=== PATIENT | male | born 1960 | race Caucasian/White ===

== ENCOUNTER 2016-08-31 04:30 | Inpatient (IN) | payer BC ==
[~2016-08-31] VITALS: Ht 185.4 cm; Wt 97.9 kg
--- NOTE | ~2016-08-31 | OR ---
PATIENT'S NAME: ION TRACY [facility] AGE: 56 Y [address] ROOM: [place] [address] LOCATION: GPCU ADMIT DATE: 08/31/2016 OR/Procedure Report DISCHARGE DATE: FAMILY PHYSICIAN: PHYSICIAN, NO ATTENDING PHYSICIAN: YUMIKO SANCHEZ SURGEON: Polo Luong MD SEWER CLEANER: None. DATE OF PROCEDURE: 08/31/2016 PREOPERATIVE DIAGNOSES: Acute cholecystitis and cholelithiasis. POSTOPERATIVE DIAGNOSES: 1. Acute cholecystitis with early gangrenous changes, gallbladder hydrops. 2. Normal common bile duct. PROCEDURE: Laparoscopic cholecystectomy with intraoperative cholangiogram. ANESTHESIA: General with 19 mL of 0.5% Marcaine local. ESTIMATED BLOOD LOSS: 50 mL. SPECIMEN: Gallbladder with stone. INDICATIONS: The patient is a 56-year-old gentleman, who presented with abrupt onset of epigastric abdominal pain, which is unremitting. Cardiac status found to be normal. He had an elevated white count [address]. Normal liver function tests. Ultrasound showed stones. After clinical evaluation it felt to have represent clinical cholecystitis. I recommended he agreed to laparoscopic cholecystectomy. DESCRIPTION OF PROCEDURE: After informed consent, the patient was taken to the operating room. After general endotracheal anesthesia, the patient's abdomen was prepped and draped into a sterile field. Time-out performed. We confirmed the patient and planned procedure and administration of preop antibiotics. We then injected local anesthetic prior to each incision. The first one made below the umbilicus, carried down to identify the anterior fascia through which a Veress needle inserted. Pneumoperitoneum was created. Under direct vision, the remaining trocars were placed. The gallbladder was visualized on the initial view because the omentum was adherent to it. We stripped down the top half of the omentum and exposed a distended hydropic gallbladder with evidence of early gangrenous changes of the wall. We had to puncture the fundus of the gallbladder in order to decompress it enough to grab it. We then carefully took down adhesions, which were very stuck to the gallbladder wall indicating the longer association with symptoms in just 12 hours. We carefully stripped down and we encountered a large stone in the PATIENT'S NAME: ION TRACY [facility] AGE: 56 Y [address] ROOM: [place] [id number] [facility] ADMIT DATE: 08/31/2016 OR/Procedure Report DISCHARGE DATE: FAMILY PHYSICIAN: PHYSICIAN, NO ATTENDING PHYSICIAN: YUMIKO SANCHEZ infundibulum. Beyond this, we were able to identify the infundibulum where the transition to the cystic duct. We retracted and we tacked down the lateral peritoneal reflection of the gallbladder to the liver to help increase our critical view of safety. We then did a dissection in the very edematous tissue and gapped around the presumed small cystic duct in order to confirm our anatomy. We elected to do a cholangiogram. We placed a clip on the gallbladder side. Did a cystotomy. Placed our cholangiogram catheter. We used 20 mL of Isovue-30 and we had the correct identification of the cystic duct and cannulation. We noted the common bile duct to be small caliber of the right and left were noted and the and free flow of contrast into the duodenal bulb. We then took out the cholangiogram catheter, clipped the duct x3 distally and divided. We clamped the lymphatic and divided. We then identified the cystic artery. Placed three clamp with four clips and divided with one clip remaining specimen side. The gallbladder was removed from liver bed with some difficulty due to inflammatory changes. Once removed, it was placed into an EndoCatch bag. We had to break up into the stone. The large stone into pieces slowly extracted through the abdominal wall at the umbilical fascial defect. We then returned to the right upper quadrant irrigated and inspected the liver bed. Hemostasis was noted. The trocars were then removed. Pneumoperitoneum released. The midline fascia defects closed with 0 Vicryl. The skin closed with subcuticular 4-0 Vicryl. Steri-Strips and sterile dressings applied. The patient tolerated procedure well and transferred to recovery room in stable condition. MD JR RIOJAS/shane /[id number] d: 08/31/16 1853 t: 09/11/16 1141, OPERATIVE SUMMARY
--- NOTE | ~2016-08-31 | DS ---
PATIENT'S NAME: ION TRACY [facility] AGE: 56 Y [address] ROOM: [id number] [place], [place] [address] LOCATION: GPCU ADMIT DATE: 08/31/2016 Discharge Summary DISCHARGE DATE: 09/02/2016 FAMILY PHYSICIAN: PHYSICIAN, NO ATTENDING PHYSICIAN: Ciro Chen FINAL DIAGNOSES: 1. Gangrenous cholecystitis. 2. Epigastric pain. PROCEDURES: Had a laparoscopic cholecystectomy with Dr. Luong on August 31. For details of admission, please see the history and physical dictated by , but the patient did present was epigastric pain. He was admitted to the floor for evaluation. LABORATORY DATA: On admission, sodium 131, potassium 3.9, chloride 108, CO2 19, BUN 11, and creatinine 1.1. Liver enzymes were normal. His cardiac enzymes were normal. Lipase was 152. White blood cell count on presentation was 18.2, on the second hospital day it was 20.5, on discharge day it was 12.5; hemoglobin on admission was 16.1, was 14.9 at discharge; and platelet count on admission 244, remained stable. Procalcitonin on admission was 0.06. Urinalysis, no evidence of infection. Blood cultures were negative. RADIOLOGIC DATA: Ultrasound of the right upper quadrant on admission showed gallbladder sludge and stones. HOSPITAL COURSE: The patient was admitted to the floor and an evaluation was done to evaluate his pain. There was concern with the pain whether it could be from esophagus or pancreatitis. His lipase was normal on admission. He was placed on Flagyl and Levaquin IV. An ultrasound was obtained. GI did see the patient. The ultrasound did show that he had evidence of stones in his gallbladder. Dr. Luong was asked to see him and felt that he had acute cholecystitis and will be benefitted from a laparoscopic cholecystectomy. Please see his operative note for full details. It did note that he had acute hydropic cholecystitis with early gangrene. He was continued on the IV antibiotics. By the second hospital day, his white blood cell count was elevated. The patient was actually doing okay, but the decision was made to continue the antibiotics and monitor him for another 24 hours. On the day of discharge, his hemoglobin was down to 12.5, he was eating without any difficulty and was not experiencing any pain. It was felt that he was stable for discharge and discharged to home. DISCHARGE INSTRUCTIONS: No lifting greater than 20 pounds for 3 weeks. He could remove the dressing on September 04. He is follow up with Dr. Luong in 7- PATIENT'S NAME: ION TRACY [facility] AGE: 56 Y [address] ROOM: [place] [address] LOCATION: GPCU ADMIT DATE: 08/31/2016 Discharge Summary DISCHARGE DATE: 09/02/2016 FAMILY PHYSICIAN: ZIA CUTLER ATTENDING PHYSICIAN: Ciro Chen 10 days. He was given a post laparoscopic cholecystectomy instructions sheet. MEDICATIONS: [place] 5/325 1-2 every 4 hours as needed for pain, he was sent with a script for 20. OVERALL PROGNOSIS: At discharge was good. MAURILIO BROWNE MD LAW/modl /[id number] CC: Polo Luong MD d: 09/02/162009 t: 09/05/161920, DISCHARGE SUMMARY
--- NOTE | ~2016-08-31 | CON ---
PATIENT'S NAME: ROSSANA [facility] AGE: 56 Y [address] ROOM: [facility] [place] [place], [place] [address] LOCATION: GPCU ADMIT DATE: 08/31/2016 Consultation DISCHARGE DATE: 09/02/2016 FAMILY PHYSICIAN: PHYSICIAN, NO ATTENDING PHYSICIAN: YUMIKO SANCHEZ Added DOS per provider 10/09/2016 AO DATE OF CONSULTATION: 08/31/2016 REFERRING PHYSICIAN: CHACE HOLLINS MD REASON FOR CONSULT: Abdominal pain. HISTORY OF PRESENT ILLNESS: Mr. Tracy is a very pleasant 56-year-old male, who was admitted early this morning to emergency room in view of history of acute onset of upper abdominal pain. The patient states he went to bed fine last night, however, woke up this morning around 1:30 with acute onset of epigastric pain without radiation to the back or shoulders in association with nausea and vomiting and presented to the ER whereby initial cardiac workup was negative. His blood work did reveal high white cell count of 18,000 with abdominal ultrasound revealing cholelithiasis. Official report is pending. Liver function tests were normal. His CBC was otherwise normal except for high white cell count, hemoglobin of 16, platelets 244,000. INR 0.9. CPK-MB 0.5. Chest x-ray was normal. The patient does not report any previous similar episodes and is otherwise healthy with no previous pertinent history. PAST MEDICAL HISTORY: Negative. He has never undergone any endoscopic evaluation. PAST SURGICAL HISTORY: None. MEDICATIONS: At home, none. Presently covered with IV antibiotics as well as IV Protonix and pain medications. SOCIAL HISTORY: Previous 65-egfk-qrke smoking. Denies alcohol use. FAMILY HISTORY: None for GI cancer. REVIEW OF SYSTEMS: PATIENT'S NAME: ION TRACY [facility] AGE: 56 Y [address] ROOM: [facility] [place] [place], [place] [address] LOCATION: GPCU ADMIT DATE: 08/31/2016 Consultation DISCHARGE DATE: 09/02/2016 FAMILY PHYSICIAN: PHYSICIAN, ZIA ATTENDING PHYSICIAN: YUMIKO SANCHEZ The 10-point review of systems is otherwise negative. PHYSICAL EXAMINATION: GENERAL: Well-developed, well-nourished man in mild distress in view of abdominal pain. VITAL SIGNS: Otherwise stable. Afebrile. HEENT: Atraumatic, normocephalic. Pupils round and reactive. Nonicteric sclerae. NECK: Supple. No palpable nodes. No thyromegaly. CHEST: Clear to auscultation. HEART: S1, S2 normal. ABDOMEN: Soft and mildly distended with moderately severe tenderness in the epigastric and right upper quadrant with localized guarding. Bowel sounds are decreased. RECTAL: Not done. EXTREMITIES: No edema. Pulses well palpable. NEUROLOGIC: Awake, alert, appropriate. No focal deficits. LABORATORY DATA: As noted above. Initial lipase was reported as normal. ASSESSMENT AND PLAN: A 56-year-old male with acute onset of abdominal pain, high white cell count, and positive Trujillo sign in association with gallstones is highly suggestive of underlying acute cholecystitis. The possibility of pancreatitis is not completely ruled out. We will obtain followup CBC, amylase, and lipase values. He is covered with IV antibiotics. We will have General Surgery on board in regard to this possibility. Further recommendations pending his clinical course. Thank you for this consult. CHACE HOLLINS MD AM/shane /[id number] Added DOS per provider 10/09/2016 AO d: 08/31/16 1132 t: 10/09/16 1405, CONSULTATION REPORT
--- NOTE | ~2016-08-31 | CON ---
PATIENT'S NAME: ION TRACY [facility] AGE: 56 Y [address] ROOM: [place] [address] LOCATION: GPCU ADMIT DATE: 08/31/2016 Consultation DISCHARGE DATE: FAMILY PHYSICIAN: , ZIA ATTENDING PHYSICIAN: YUMIKO SANCHEZ REFERRING PHYSICIAN: CHACE HOLLINS MD REASON FOR CONSULT: Abdominal pain. HISTORY OF PRESENT ILLNESS: Mr. Tracy is a very pleasant 56-year-old male, who was admitted early this morning to emergency room in view of history of acute onset of upper abdominal pain. The patient states he went to bed fine last night, however, woke up this morning around 1:30 with acute onset of epigastric pain without radiation to the back or shoulders in association with nausea and vomiting and presented to the ER whereby initial cardiac workup was negative. His blood work did reveal high white cell count of 18,000 with abdominal ultrasound revealing cholelithiasis. Official report is pending. Liver function tests were normal. His CBC was otherwise normal except for high white cell count, hemoglobin of 16, platelets 244,000. INR 0.9. CPK-MB 0.5. Chest x-ray was normal. The patient does not report any previous similar episodes and is otherwise healthy with no previous pertinent history. PAST MEDICAL HISTORY: Negative. He has never undergone any endoscopic evaluation. PAST SURGICAL HISTORY: None. MEDICATIONS: At home, none. Presently covered with IV antibiotics as well as IV Protonix and pain medications. SOCIAL HISTORY: Previous 24-vwsy-they smoking. Denies alcohol use. FAMILY HISTORY: None for GI cancer. REVIEW OF SYSTEMS: The 10-point review of systems is otherwise negative. PHYSICAL EXAMINATION: PATIENT'S NAME: ION TRACY [facility] AGE: 56 Y [address] ROOM: [place] [address] LOCATION: GPCU ADMIT DATE: 08/31/2016 Consultation DISCHARGE DATE: FAMILY PHYSICIAN: PHYSICIAN, ZIA ATTENDING PHYSICIAN: YUMIKO SANCHEZ GENERAL: Well-developed, well-nourished man in mild distress in view of abdominal pain. VITAL SIGNS: Otherwise stable. Afebrile. HEENT: Atraumatic, normocephalic. Pupils round and reactive. Nonicteric sclerae. NECK: Supple. No palpable nodes. No thyromegaly. CHEST: Clear to auscultation. HEART: S1, S2 normal. ABDOMEN: Soft and mildly distended with moderately severe tenderness in the epigastric and right upper quadrant with localized guarding. Bowel sounds are decreased. RECTAL: Not done. EXTREMITIES: No edema. Pulses well palpable. NEUROLOGIC: Awake, alert, appropriate. No focal deficits. LABORATORY DATA: As noted above. Initial lipase was reported as normal. ASSESSMENT AND PLAN: A 56-year-old male with acute onset of abdominal pain, high white cell count, and positive Trujillo sign in association with gallstones is highly suggestive of underlying acute cholecystitis. The possibility of pancreatitis is not completely ruled out. We will obtain followup CBC, amylase, and lipase values. He is covered with IV antibiotics. We will have General Surgery on board in regard to this possibility. Further recommendations pending his clinical course. Thank you for this consult. CHACE HOLLINS MD AM/shane /[id number] d: 08/31/16 1132 t: 09/02/16 1441, CONSULTATION REPORT
--- NOTE | ~2016-08-31 | HP ---
PATIENT'S NAME: ION TRACY [facility] AGE: 56 Y [address] ROOM: [id number] [place], [place] [address] LOCATION: GPCU ADMIT DATE: 08/31/2016 History & Physical DISCHARGE DATE: FAMILY PHYSICIAN: PHYSICIAN, ZIA ATTENDING PHYSICIAN: YUMIKO SANCHEZ DATE OF SERVICE: CHIEF COMPLAINT: Epigastric pain and nausea and vomiting. HISTORY OF PRESENT ILLNESS: This is a 56-year-old, male, who says that last night around 5:00 p.m., he had steak, hash browns, and a bowl of chillies and after that about an hour after, he started feeling this epigastric pain, associated with nausea, and he vomited twice of nonbloody content. But he states he vomited all the bowl of chilly that he ate earlier. He also at the same time felt a little bit diaphoretic but he denies any fever or chills. He rated the epigastric pain about 9/10 in intensity without radiation. Denies any dyspnea or cough. Overnight, the epigastric pain kept coming back and was getting worse. Therefore, the patient called ambulance and was brought here for evaluation. The patient denies ever having any known cardiac problem in the past. The patient denies any melena, hematemesis, hematuria, hemoptysis, coffee-grounds emesis, or hematochezia. REVIEW OF SYSTEMS: As mentioned in the history of present illness. All other systems were reviewed and were negative except those mentioned in the history of present illness. PAST MEDICAL HISTORY: No known past medical history. ALLERGIES: NO KNOWN DRUG ALLERGIES. HOME MEDICATIONS: None. SOCIAL HISTORY: The patient is an active cigarette smoker about 2 packs per day since he was 20 years old. The patient is a former social alcohol drinker. He denies any alcohol abuse, only for few years and he quit a few months ago already. The patient denies any alcohol withdrawal, seizure, or any alcohol use dependence in the past. The patient denies any illegal drug use. The patient works as a PATIENT'S NAME: ION TRACY [facility] AGE: 56 Y [address] ROOM: [id number] [place], [place] [address] LOCATION: GPCU ADMIT DATE: 08/31/2016 History & Physical DISCHARGE DATE: FAMILY PHYSICIAN: PHYSICIAN, NO ATTENDING PHYSICIAN: YUMIKO SANCHEZ company tanker truck driver. PAST SURGICAL HISTORY: None. FAMILY HISTORY: Father is healthy. Mother had some kind of heart problem but he does not know all the details. She is also diabetic and is alive. He has 2 brothers without any known cardiac history. He has 3 sisters also without any known cardiac history. PHYSICAL EXAMINATION: VITAL SIGNS: The patient's heart rate is 78, blood pressure 141/89, saturation 98% on 1 L nasal cannula, respirations 14, and temperature 98. GENERAL APPEARANCE: Alert and oriented x3, in no acute distress. HEENT: Pupils equally round and reactive to light. Extraocular muscles intact. Anicteric sclerae. Nasal turbinates are normal bilaterally. Moist oral mucosa. NECK: No JVD. CARDIOVASCULAR: Regular rate and rhythm. Normal S1, S2. No murmur. No rubs. No gallops. RESPIRATORY: Clear. Chest wall nontender to palpation. ABDOMEN: Tenderness to palpation in the epigastric area. No abdominal rigidity. Soft. Nondistended. No palpable mass. Bowel sounds are present. No ascites. No signs to suggest peritonitis. No rebound tenderness. Mild tenderness on deep palpation with deep inspiration in the right upper quadrant. Trujillo sign mildly positive at the moment. EXTREMITIES: No edema in upper or lower extremities. NEUROLOGICAL: Grossly nonfocal. SKIN: No ulcer, no rash, no cyanosis. MUSCULOSKELETAL: No joint pain. No muscle pain. Range of motion intact. LABORATORY DATA: Lactic acid 0.7. Troponin less than 0.04 out of first 2 sets. CPK 65, followed by 58. White blood cells 18.2, hemoglobin 16.1, hematocrit 47.2, platelets 244. Glucose 125, BUN 11, creatinine 1.1, sodium 139, potassium 3.9, chloride 108, CO2 19, calcium 8.6. Total protein 7.0, albumin 3.3, AST 13, ALT 24, alkaline phosphatase 80, total bilirubin 0.5, magnesium 2.0, anion gap of 15.9. GFR more than 60. INR 0.99 and PTT 28. Lipase 152, CK-MB less than 0.05 out of first 2 sets. Procalcitonin pending. Chest x-ray on admission, official reading is pending. Based on my review, unremarkable. Right upper quadrant abdominal ultrasound was performed in the emergency room. PATIENT'S NAME: ION TRACY [facility] AGE: 56 Y [address] ROOM: [id number] [place], [place] [address] LOCATION: GPCU ADMIT DATE: 08/31/2016 History & Physical DISCHARGE DATE: FAMILY PHYSICIAN: PHYSICIAN, NO ATTENDING PHYSICIAN: YUMIKO SANCHEZ Based on the verbal report given to me by the ER physician, it shows evidence of biliary sludge and gallstone and mild inflammation of the gallbladder wall. This is a verbal report. Please follow up on the official report in the morning. EKG on admission: sinus rhythm HR 73, no acute ischemic findings. RI 164, QRS 98 and QTC 405. EMERGENCY ROOM COURSE: In the emergency room, the patient received IV Zofran 4 mg x1, nitroglycerin sublingual 0.4 mg x2, morphine 2 mg IV x1, morphine 2 mg IV x1 again, Dilaudid 0.25 mg IV x1, GI cocktail, one bottle p.o. x1, and Protonix 40 mg p.o. x1. ASSESSMENT AND PLAN: 1. Regarding his epigastric pain, associated with nausea and vomiting: Differential here could include acute gastroenteritis from food poisoning, could also include Hernadez's esophagus, could also include perforated viscus but less likely given that there is no abdominal rigidity on examination, and chest x-ray did not show any free air, but I will get a KUB right now to make sure there is no free air at this time. The other differential could include acute cholecystitis but I will wait for the final report of the right upper quadrant ultrasound to be read by our Radiology this morning. In the meantime, to cover for the gastroenteritis or colitis or cholecystitis, I am going to cover him with IV Levaquin plus IV Flagyl. This is a coverage good for cholecystitis and also good for colitis or gastroenteritis of infectious origin. Further plan depends on clinical course. I also going to give him IV fluids for hydration. Keep him n.p.o. I will get a GI consult in case patient may benefit from upper endoscopy to see if he has any finding that could be fixed from the upper endoscopy. Lipase is normal. Therefore pancreatitis is less likely. There is no pain anywhere else on abdominal exam. If his pain worsens or persists, we will get a CT abdomen and pelvis for further evaluation. Further plan depends on clinical course. I will also get 2 sets of blood culture right now given that the patient is having leukocytosis on admission. Procalcitonin currently is pending. Further plan will depend on clinical course. 2. Regarding possibility of a cardiac cause of his pain, at this moment it is less likely, given that the epigastric pain is reproducible on touch. Therefore it is less likely from the cardiac cause. Troponin so far two sets are negative. EKG unremarkable. The patient does have cardiac risk factors including cigarette smoking and overweight. However, at the moment, the epigastric pain associated with nausea, vomiting, and negative EKG, negative cardiac enzyme, and no response of relief with nitroglycerin or morphine, is probably less likely from the cardiac origin. However, I will continue cardiac monitoring for now. 3. Regarding his deep vein thrombosis prophylaxis: I will give him compression devices, in case he will require any surgical intervention. Further plan depends on clinical course. If the patient would not PATIENT'S NAME: ION TRACY [facility] AGE: 56 Y [address] ROOM: [place] [address] [facility] AD[facility] DATE: 08/31/2016 History & Physical DISCHARGE DATE: FAMILY PHYSICIAN: PHYSICIAN, NO ATTENDING PHYSICIAN: YUMIKO SANCHEZ require surgical intervention, therefore, heparin or Lovenox subcutaneous will be given. 4. Code status: Full code. Time spent on the day of admission in care, 35 minutes, including chart review, interviewing the patient, examining the patient, addressing all the questions and concerns the patient had, and also went over the plan of care in detail with the patient and the patient's sister at the bedside. All questions were answered to their satisfaction. The patient and the patient's sister agree with the current plan and understand that further plan will depend on clinical course. Half of the total time spent was in examining and interviewing the patient and chart review, the other half was spent in counseling by answering patient and his sister's questions and concerns and going over plan of care with them. MD NADINE PENA/shane /[id number] D: [id number] T: [id number] HISTORY & PHYSICAL
--- NOTE | ~2016-08-31 | ER ---
PATIENT'S NAME: ION TRACY [facility] AGE: 56 Y [address] ROOM: [address] [address] LOCATION: GPCU ADMIT DATE: 08/31/2016 ER/Outpatient Report DISCHARGE DATE: FAMILY PHYSICIAN: PHYSICIAN, NO ATTENDING PHYSICIAN: YUMIKO SANCHEZ TIME SEEN: The patient is seen at 0440 hours. CHIEF COMPLAINT: This is a 56-year-old male. He was previously quite healthy. He is in with a complaint of epigastric pain, lower chest pain, nausea, and diaphoresis. HISTORY OF PRESENT ILLNESS: He reports that he ate a heavy dinner last night, although he felt well after eating, and he went to sleep. He was awakened at about midnight with severe subxiphoid pain associated with nausea and diaphoresis. He states he vomited twice. He continued to have the pain. The ambulance was summoned, and they gave him morphine and Zofran en route to the emergency department, and his pain resolved. PAST MEDICAL HISTORY: He has no chronic medical problems. REVIEW OF SYSTEMS: Otherwise, negative. SOCIAL HISTORY: He smokes greater than 2 packs per day for the past 30 years. He works as a trash truck driver. PHYSICAL EXAMINATION: GENERAL: Alert, cooperative male, appearing older than his stated age of 56, in no acute distress. SKIN: Warm and dry. Color is normal. HEAD, EARS, EYES, NOSE, AND THROAT: Normal. NECK: Supple. HEART: Regular rate and rhythm without murmur. LUNGS: Clear. Breath sounds are equal. ABDOMEN: Soft. He has minimal epigastric tenderness. No guarding or rebound tenderness. NEUROLOGIC: Normal. LABORATORY DATA: EKG revealed normal sinus rhythm with no acute ST or T-wave changes. CBC with PATIENT'S NAME: ION TRACY [facility] AGE: 56 Y [address] ROOM: [address] [place] [id number] LOCATION: GPCU ADMIT DATE: 08/31/2016 ER/Outpatient Report DISCHARGE DATE: FAMILY PHYSICIAN: PHYSICIAN, NO ATTENDING PHYSICIAN: YUMIKO SANCHEZ elevated white blood cell count of 18,000. Otherwise, unremarkable. Comprehensive metabolic profile revealed normal liver enzymes and was essentially unremarkable. Chest x-ray was negative. Lipase was normal. Cardiac enzymes were negative. EMERGENCY DEPARTMENT COURSE: The patient was pain-free on arrival; however, about an hour after arrival, he began to have epigastric pain and nausea again. He was given sublingual nitroglycerin, which improved his pain. He continued to be nauseated. He was given 4 mg of Zofran IV. ASSESSMENT: Chest pain/epigastric pain of uncertain etiology. PLAN: Admission. BILLY LIMA MD JDB/modl /[id number] d: 08/31/16 1158 t: 10/05/16 0453, OUTPATIENT REPORT
--- NOTE | ~2016-08-31 | HP ---
PATIENT'S NAME: ION TRACY [facility] AGE: 56 Y [address] ROOM: [address] [place], [place] [address] LOCATION: GPCU ADMIT DATE: 08/31/2016 History & Physical DISCHARGE DATE: FAMILY PHYSICIAN: PHYSICIAN, NO ATTENDING PHYSICIAN: CIOR SANCHEZ DATE OF SERVICE: 08/31/2016 REFERRING PHYSICIAN: Ciro Sanchez M.D. CHIEF COMPLAINT: Abdominal pain. REVIEW OF RECORD: Ion Tracy is a 56-year-old gentleman, who was admitted to the hospital after ambulance brought him for epigastric abdominal pain, not unremitting. The patient says he had chicken fried steak and greasy foods on the evening about 6 o'clock on 08/30/2016. About midnight he said he woke up with severe epigastric pain, he points to the subxiphoid location. He had some nausea and vomiting. He called the ambulance and worried about a heart attack and presented to the emergency room where he was evaluated. He was found to be afebrile in obvious distress with epigastric abdominal pain, point to point tenderness with touch. The patient denies any previous attacks similar to this. He has no history of upper abdominal operations. No prior history of peptic ulcer disease. He says emesis did not have any blood. He has not had a colonoscopy, but has not noticed any change in his bowel habits. He says before midnight, he was totally fine. He says he has a past history of alcohol abuse, nothing for the last six months and no alcohol yesterday. He states he had no shortness of breath. Pain in the chest were radiating to the arm or the neck was not reported. In the emergency room, he was found to have elevated white count [id number], however, his liver function tests and lipase were normal. His urinalysis is unremarkable. His chest x-ray showed no acute features. No free air under the diaphragm. A KUBs recently obtained showed no free air. The patient was admitted to the hospital after ultrasound showed cholelithiasis and sludge may be beginning of some inflammatory changes. Dr. Mon gastroenterologists were reviewed. He felt he was consistent with biliary colic with right upper quadrant tenderness. He felt that peptic ulcer disease was not present the morning of the endoscopy evaluation. The patient has not had a screening colonoscopy and would recommend to get such that is performed in the near future. The patient denies any head trauma. Denies any hepatitis and pancreatitis history. He denied any fevers or jaundice. PAST MEDICAL HISTORY: None. PATIENT'S NAME: ION TRACY [facility] AGE: 56 Y [address] ROOM: [address] [place], [place] [address] [facility] AD[facility] DATE: 08/31/2016 History & Physical DISCHARGE DATE: FAMILY PHYSICIAN: PHYSICIAN, NO ATTENDING PHYSICIAN: CIRO SANCHEZ MEDICATIONS: None. ALLERGIES: NONE. OPERATIONS: Lancing of external hemorrhoids. SOCIAL HISTORY: twice. No kid. Smokes a pack a day. 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 FAMILY HISTORY: Maternal great grandfather had liver cancer and he had abuse of alcohol. Maternal grandmother had congestive heart failure. Mother has a weak heart. Maternal grandmother also had diabetes. REVIEW OF SYSTEMS: He denies any change in his weight. No change in vision or hearing. No problems with swallowing. No thyroid or diabetic conditions. He says he has never been hospitalized for pneumonia and has not coughed any blood up and does not see a physician ever. Denies any prior heart history. Denies exercise intolerance, but does not really do much of his job. Denies any lower abdominal pain. No dysuria. No hematuria. No flank pain. Denies any blood in his stools or change in stool caliber. Denies any swollen joints or peripheral edema. Denies any TIA symptoms. PHYSICAL EXAMINATION: GENERAL: He is a 56-year-old gentleman, who appears to be in moderate distress with abdominal pain. He is holding his right subcostal location. HEENT: Head is normocephalic. His sclerae are nonicteric. His mucous membranes are dry. NECK: Supple. There is no adenopathy or thyromegaly. There is no supraclavicular adenopathy. LUNGS: Clear bilaterally. No rales or wheezes. HEART: Sinus rhythm. I do not auscultate a murmur. ABDOMEN: Flat. Positive bowel sounds with palpation subxiphoid to the right subcostal location. He does have guarding. ABDOMEN: His lower abdomen is soft. His McBurney point has no rebound and has no tenderness. EXTREMITIES: Have no peripheral edema. He has 2/2 fifth femoral, radial, and posterior tibial pulses. IMPRESSION: A 56-year-old gentleman with first attack of abrupt onset of abdominal pain, PATIENT'S NAME: ION TRACY [facility] AGE: 56 Y [address] ROOM: [address] [place], [place] [address] [facility] ADMIT DATE: 08/31/2016 History & Physical DISCHARGE DATE: FAMILY PHYSICIAN: PHYSICIAN, NO ATTENDING PHYSICIAN: CIRO SANCHEZ epigastric right upper quadrant. The only abnormality is elevated white count [id number] and ultrasound showing stones. Lipase was normal. Liver function tests were normal. No evidence of common duct pathology and ultrasound showed normal common bile duct size. He has no history of peptic ulcer disease. No history of prior abdominal operations. We discussed the ongoing investigation looking at the CAT scan with myself and Dr. Mon are suspicious for biliary colic, possible acute cholecystitis developing. We discussed laparoscopic cholecystectomy with a cholangiogram as needed. We talked about the procedure, benefits, risks, including, but not limited to, heart failure, myocardial infarction, and , PE, pneumonia, abdominal wall hernia bleeding requiring additional operation. DIFFERENTIAL DIAGNOSES: Including peptic ulcer disease and pancreatitis etc. PLAN: We talked about common bile duct injury, bile leak, open technique. I answered the patient and his sisters questions and they wish to proceed. Thank you very much for allowing me to participate in his care. MD JR RIOJAS/modl /[id number] D: 646 T: HISTORY & PHYSICAL
--- NOTE | ~2016-08-31 | ER ---
PATIENT'S NAME: ION ROWLEY [facility] AGE: 56 Y [address] ROOM: [place] [address] [facility] AD[facility] DATE: 08/31/2016 ER/Outpatient Report DISCHARGE DATE: FAMILY PHYSICIAN: PHYSICIAN, NO ATTENDING PHYSICIAN: YUMIKO SANCHEZ HISTORY OF PRESENT ILLNESS: Ion Rowley is a 56-year-old male who was seen by Dr. Vera, please refer to his dictation. At shift change, I assumed care for followup of his right upper quadrant ultrasound which showed gallstones, sludge, borderline wall thickening, and fatty infiltration of the liver per Radiology. The patient continued to have pain despite pain management. White count was 18,000. Cardiac enzymes were negative x2. EKG: No acute ST elevation or depression. IMPRESSION AND PLAN: 1. Chest pain. Serial EKG and enzymes. 2. Epigastric pain, nausea, and vomiting associated with cholelithiasis and sludge. Plan for admission per Hospitalist Service with surgical consultation. MD KRIS HERNANDEZ/shane /[id number] d: 08/31/16 1837 t: 09/03/16 0642, OUTPATIENT REPORT
--- NOTE | ~2016-08-31 | ER ---
PATIENT'S NAME: ION TRACY [facility] AGE: 56 Y [address] ROOM: [address] [address] LOCATION: GPCU ADMIT DATE: 08/31/2016 ER/Outpatient Report DISCHARGE DATE: FAMILY PHYSICIAN: PHYSICIAN, NO ATTENDING PHYSICIAN: YUMIKO SANCHEZ TIME SEEN: The patient is seen at 0440 hours. CHIEF COMPLAINT: This is a 56-year-old male. He was previously quite healthy. He is in with a complaint of epigastric pain, lower chest pain, nausea, and diaphoresis. HISTORY OF PRESENT ILLNESS: He reports that he ate a heavy dinner last night, although he felt well after eating, and he went to sleep. He was awakened at about midnight with severe subxiphoid pain associated with nausea and diaphoresis. He states he vomited twice. He continued to have the pain. The ambulance was summoned, and they gave him morphine and Zofran en route to the emergency department, and his pain resolved. PAST MEDICAL HISTORY: He has no chronic medical problems. REVIEW OF SYSTEMS: Otherwise, negative. SOCIAL HISTORY: He smokes greater than 2 packs per day for the past 30 years. He works as a truck despatcher. PHYSICAL EXAMINATION: GENERAL: Alert, cooperative male, appearing older than his stated age of 56, in no acute distress. SKIN: Warm and dry. Color is normal. HEAD, EARS, EYES, NOSE, AND THROAT: Normal. NECK: Supple. HEART: Regular rate and rhythm without murmur. LUNGS: Clear. Breath sounds are equal. ABDOMEN: Soft. He has minimal epigastric tenderness. No guarding or rebound tenderness. NEUROLOGIC: Normal. LABORATORY DATA: EKG revealed normal sinus rhythm with no acute ST or T-wave changes. CBC with PATIENT'S NAME: ION TRACY [facility] AGE: 56 Y [address] ROOM: [address] [place] [id number] LOCATION: GPCU ADMIT DATE: 08/31/2016 ER/Outpatient Report DISCHARGE DATE: FAMILY PHYSICIAN: PHYSICIAN, NO ATTENDING PHYSICIAN: YUMIKO SANCHEZ elevated white blood cell count of 18,000. Otherwise, unremarkable. Comprehensive metabolic profile revealed normal liver enzymes and was essentially unremarkable. Chest x-ray was negative. Lipase was normal. Cardiac enzymes were negative. EMERGENCY DEPARTMENT COURSE: The patient was pain-free on arrival; however, about an hour after arrival, he began to have epigastric pain and nausea again. He was given sublingual nitroglycerin, which improved his pain. He continued to be nauseated. He was given 4 mg of Zofran IV. ASSESSMENT: Chest pain/epigastric pain of uncertain etiology. PLAN: Admission. BILLY LIMA MD JDB/modl /[id number] d: t: 08/31/16 1219, OUTPATIENT REPORT
[2016-08-31 04:55] LABS: BASOPHIL # 0.1 K/uL (0.0-0.2); BASOPHIL % 0.5 %; EOSINOPHIL # 0.2 K/uL (0.0-0.5); EOSINOPHIL % 1.2 %; HEMATOCRIT 47.2 % (37.0-53.0); HEMOGLOBIN 16.1 g/dL (12.0-17.0); IMMATURE GRANULOCYTE # 0.1 K/uL (0.0-0.3); IMMATURE GRANULOCYTE % 0.5 %; LYMPHOCYTE # 2.2 K/uL (0.8-4.0); LYMPHOCYTE % 12.3 %; MCHC 34.1 gm/dL (32.0-36.5); MCV 88.1 fl (83.0-98.0); MONOCYTE # 1.4 K/uL (0.0-1.0); MONOCYTE % 7.9 %; MPV 10.3 fl (9.4-12.4); NEUTROPHIL # (ANC) 14.1 K/uL (1.4-9.0); NEUTROPHIL % 77.6 %; NRBC % 0 /100WBC (0-0.00); PLATELET COUNT 244 K/uL (150-450); RBC 5.36 M/uL (4.00-6.00); RDW-CV 12.9 % (11.9-14.6)
[2016-08-31 04:58] LABS: WBC 18.2 K/uL (4.0-11.0)
[2016-08-31 05:14] LABS: ALBUMIN 3.3 gm/dL (3.5-5.0); ALK PHOS 80 IU/L (33-138); ALT 24 IU/L (12-78); ANION GAP 15.9 (10.0-19.0); AST 13 IU/L (10-40); BLOOD UREA NITROGEN 11 mg/dL (6-24); CALCIUM 8.6 mg/dL (8.5-10.5); CHLORIDE 108 mMol/L (96-110); CO2 19 mMol/L (22-32); CPK 65 IU/L (35-332); CREATININE 1.1 mg/dL (0.6-1.3); ESTIMATED GFR (MDRD EQUATION) > 60; INR - (THERAPEUTIC) 0.99 (0.92-1.07); POTASSIUM 3.9 mMol/L (3.7-5.1); PROTIME 10.4 SECONDS (9.8-11.4); PTT 28 SECONDS (25-32); SODIUM 139 mMol/L (135-145); TOTAL BILIRUBIN 0.5 mg/dL (0.0-1.5)
[2016-08-31 07:22] LABS: CPK 58 IU/L (35-332)
--- NOTE | 2016-08-31 08:44 | NUR ---
56 YR OLD MALE CAME TO ER WITH CHEST PAIN AND N/V. ATE SUPPER LAST NIGHT AT 1700 WENT TO BED AND WOKE UP AROUND MIDNIGHT WITH CHEST PAIN, N/V. CALLED AMBULANCE AND BROUGHT TO ER. ZOFRAN 8MG GIVEN WITH RELIEF. STILL FEELS LIKE HAS SOME NAUSEA AT TIMES. RESTING IN ROOM.
[2016-08-31 11:28] LABS: BILIRUBIN URINE NEGATIVE (NEGATIVE); BLOOD URINE NEGATIVE /UL (NEGATIVE); GLUCOSE URINE NEGATIVE (NEGATIVE); KETONE URINE NEGATIVE (NEGATIVE); LEUKOCYTES URINE NEGATIVE /UL (NEGATIVE); NITRITE URINE NEGATIVE (NEGATIVE); PROTEIN URINE NEGATIVE (NEGATIVE); SPEC GRAVITY URINE 1.015 (1.003-1.035); UROBILINOGEN URINE 8 mg/dL (NORMAL)
[2016-08-31 11:48] LABS: COLOR URINE YELLOW (YELLOW); TURBIDITY URINE CLEAR (CLEAR)
[2016-08-31 15:24] LABS: CPK 68 IU/L (35-332)
--- NOTE | 2016-08-31 19:22 | NUR ---
Significant Event: PATIENT RETURNED FROM OR AT 1540, STAB SITES X 4, INTACT, SMALL AMOUNT OF DRAINAGE. VSS. 2L. DENIES PAIN AT THIS TIME. RESTING COMFORTABLY IN BED. Follow up: CONTINUE TO FOLLOW PER PLAN OF CARE.
[2016-09-01 03:16] LABS: BASOPHIL % 0.1 %; HEMATOCRIT 46.1 % (37.0-53.0); HEMOGLOBIN 15.5 g/dL (12.0-17.0); IMMATURE GRANULOCYTE # 0.1 K/uL (0.0-0.3); IMMATURE GRANULOCYTE % 0.6 %; LYMPHOCYTE # 1.6 K/uL (0.8-4.0); LYMPHOCYTE % 7.8 %; MCH 30.3 pg (27.0-34.0); MCHC 33.6 gm/dL (32.0-36.5); MCV 90.2 fl (83.0-98.0); MONOCYTE # 1.5 K/uL (0.0-1.0); MONOCYTE % 7.1 %; MPV 10.5 fl (9.4-12.4); NEUTROPHIL # (ANC) 17.3 K/uL (1.4-9.0); NEUTROPHIL % 84.4 %; NRBC % 0 /100WBC (0-0.00); PLATELET COUNT 231 K/uL (150-450); RBC 5.11 M/uL (4.00-6.00); RDW-CV 13.2 % (11.9-14.6)
[2016-09-01 03:21] LABS: WBC 20.5 K/uL (4.0-11.0)
[2016-09-01 03:39] LABS: ALBUMIN 2.9 gm/dL (3.5-5.0); ALK PHOS 80 IU/L (33-138); ALT 122 IU/L (12-78); ANION GAP 11.4 (10.0-19.0); AST 91 IU/L (10-40); BLOOD UREA NITROGEN 9 mg/dL (6-24); CALCIUM 8.3 mg/dL (8.5-10.5); CHLORIDE 108 mMol/L (96-110); CO2 24 mMol/L (22-32); ESTIMATED GFR (MDRD EQUATION) > 60; POTASSIUM 4.4 mMol/L (3.7-5.1); SODIUM 139 mMol/L (135-145); TOTAL PROTEIN 6.6 g/dL (6.0-8.4)
[2016-09-01 03:40] LABS: TOTAL BILIRUBIN 0.7 mg/dL (0.0-1.5)
--- NOTE | 2016-09-01 04:10 | NUR ---
Significant Event: Patient A/OX3. VSS on 2L, titrated to room air. Patient is up standby assist. Ambulated in stevens x1, doing several laps. tolerated well. dressings to lap demian stab sites have some drainage. Patient has had no complaints of pain. D5 with 1/2 NS running at 100. Patient on clear liquid diet, to advance as tolerated. Follow up: Home today?
--- NOTE | 2016-09-01 13:17 | NUR ---
Introduced self and care management services to patient. Lives in [place], [place]. Parents and sister/brother in law live nearby if he needs anything. Independent at home. Denies concerns about going home on discharge. Denies needs. Pt says he anticipates going home tomorrow. Will follow.
--- NOTE | 2016-09-01 15:48 | NUR ---
Significant Event: A/O X3. UP AD TODD IN ROOM. SHOWERED THIS AM WITH MINIMAL ASSIST. X4 ABDOMINAL STAB SITES. DRESSINGS X3 CHANGED ONCE, NO FURTHER DRAINAGE NOTED. PASSING GAS, NO BM YET. DENIES NAUSEA. ONLY COMPLAINS OF MINIMAL PAIN TO ABDOMEN WITH COUGHING. PIV TO RIGHT AC SL'D. ANTIBIOTICS CHANGED TO ORAL. ADVANCED TO REGULAR DIET AND TOLERATING WELL. Follow up: PLAN FOR DISCHARGE TOMORROW.
--- NOTE | 2016-09-02 04:18 | NUR ---
Significant Event: Patient A/Ox3. VSS on RA. Up ad calixto. Ambulates frequently in stevens. Dressings to abdominal stab sites C/D/I. No complaints of pain. No bowel movement this shift but patient is passing gas. IV to R) AC SL. Follow up: Discharge to home today
[2016-09-02 06:32] LABS: BASOPHIL # 0.1 K/uL (0.0-0.2); BASOPHIL % 0.8 %; EOSINOPHIL # 0.2 K/uL (0.0-0.5); EOSINOPHIL % 1.2 %; HEMATOCRIT 44.4 % (37.0-53.0); HEMOGLOBIN 14.9 g/dL (12.0-17.0); IMMATURE GRANULOCYTE % 0.3 %; LYMPHOCYTE # 3.2 K/uL (0.8-4.0); LYMPHOCYTE % 25.6 %; MCH 30.2 pg (27.0-34.0); MCHC 33.6 gm/dL (32.0-36.5); MCV 90.1 fl (83.0-98.0); MONOCYTE # 1.3 K/uL (0.0-1.0); MPV 10.6 fl (9.4-12.4); NEUTROPHIL # (ANC) 7.8 K/uL (1.4-9.0); NEUTROPHIL % 62.1 %; NRBC % 0 /100WBC (0-0.00); PLATELET COUNT 237 K/uL (150-450); RBC 4.93 M/uL (4.00-6.00); RDW-CV 13.3 % (11.9-14.6); WBC 12.5 K/uL (4.0-11.0)
[2016-09-02] MEDS ORDERED: NORCO 5-325 TA1 EACH PO (10:08)
== END 2016-09-02 11:12 | disposition disaster alternative care site (69) | DRG 418 ==
LOC: GMED 04:30 → GPCU 07:27
PROVIDERS: Emergency Medicine; Physician Assistant; Student in an Organized Health Care Education/Training Program; ADMIT Internal Medicine
PROC: BF10YZZ Fluoroscopy of Bile Ducts using Other Contrast (ICD-10-PCS; principal; 2016-08-31)
PROC: 0FT44ZZ Resection of Gallbladder, Percutaneous Endoscopic Approach (ICD-10-PCS; principal; 2016-08-31)
DX: K80.00 Calculus of gallbladder with acute cholecystitis without obstruction (principal); K82.1 Hydrops of gallbladder; K82.8 Other specified diseases of gallbladder; F17.210 Nicotine dependence, cigarettes, uncomplicated
CPT/HCPCS: C9113; J1170; J1956; J2270; J2405; J7042; J7050; J7120

== ENCOUNTER → 2016-08-31 | Outpatient (CLI) | payer SELFPAY ==
[~2016-08-31] MED LIST: NORCO 5-325 TA1 EACH PO
== END | disposition disaster alternative care site (69) ==
LOC: GAMB 04:07
DX: K92.9 Disease of digestive system, unspecified (principal); R07.9 Chest pain, unspecified; R10.13 Epigastric pain; R11.2 Nausea with vomiting, unspecified
CPT/HCPCS: A0425; A0427; C9113; J2270; J2405